=== PATIENT | female | born 1945 | race Caucasian/White ===

== ENCOUNTER 2017-10-15 13:01 | Outpatient (CLI) | payer MEDICARE ==
--- NOTE | 2017-10-15 13:38 | RAD ---
CHEST TWO VIEWS: History: Pulmonary fibrosis. FINDINGS: No comparison. Cardiac silhouette and pulmonary vasculature are unremarkable. Pulmonary volumes are w ithin normal limits. Peripheral linear interstitial markings extending to the pleural surfaces. Scarr ing at the right lateral costophrenic angle. Mediastinum is midline. No lobar consolidation, pneumoth orax or pleural fluid. Post-operative changes of the cervical spine. IMPRESSION: Peripheral linear interstitial markings, consistent with pulmonary fibrosis. No active cardiopulmonar y abnormalities are otherwise demonstrated. POS: [facility]
== END 2017-10-15 13:02 | disposition home or self-care (01) ==
LOC: RAD 13:01
PROVIDERS: ATTEND Thoracic Surgery (Cardiothoracic Vascular Surgery)
DX: J84.10 Pulmonary fibrosis, unspecified (principal)
CPT/HCPCS: 71046